=== PATIENT | female | born 1985 | race Caucasian/White ===

== ENCOUNTER 2017-02-12 09:57 | Inpatient (IN) | payer OTHER ==
[~2017-02-12] VITALS: Ht 162.6 cm; Wt 97.7 kg
[~2017-02-12 09:57] MED LIST: OMEP-110 PO
[2017-02-12] MEDS ORDERED: LACTATED RINGERS 1,000 ML IV SCH (12:52)
[2017-02-12] MEDS: D5%-LACTATED RINGERS 1,000 ML IV SCH ×2 (12:55→19:33)
[2017-02-12] MEDS ORDERED: PLEASE ENTER HEIGHT AND WEIGHT MC SCH (13:30)
[2017-02-12 13:48] LABS: HEMATOCRIT 35.2 % (34.6-47.8); WHITE BLOOD COUNT 10.9 x10^3/uL (3.4-10)
[2017-02-12 15:00] VITALS: BP 133/67
[2017-02-12 20:05] VITALS: BP 121/68
[2017-02-12] MEDS ORDERED: DIPHENHYDRAMINE 25 MG CAPSULE PO PRN (21:00)
[2017-02-12] MEDS ORDERED: DIPHENHYDRAMINE 25 MG CAPSULE ONE (22:09)
[2017-02-13] MEDS ORDERED: LACTATED RINGERS 1,000 ML IV SCH (08:26)
[2017-02-13] MEDS ORDERED: LACTATED RINGERS 1,000 ML IVBOLUS ONE (08:30)
[2017-02-13] MEDS ORDERED: METOCLOPRAMIDE 5 MG/ML, 2ML IV ONE (08:30)
[2017-02-13] MEDS ORDERED: SODIUM CITRATE/CITRIC ACID 30 ML UDC PO ONE (08:30)
[2017-02-13] MEDS ORDERED: SODIUM CITRATE/CITRIC ACID 30 ML UDC ONE (08:34)
[2017-02-13] MEDS ORDERED: METOCLOPRAMIDE 5 MG/ML, 2ML ONE ×2 (08:34→09:14)
[2017-02-13 08:40] VITALS: BP 138/69
[2017-02-13] MEDS ORDERED: CEFAZOLIN 1,000 MG ONE (09:14)
[2017-02-13] MEDS ORDERED: EPHEDRINE 50 MG/ML, 1ML ONE (09:14)
[2017-02-13] MEDS ORDERED: FENTANYL PF 100 MCG/2ML ONE (09:33)
[2017-02-13] MEDS ORDERED: OXYcodone/APAP 5/325MG TABLET PO PRN (11:00)
[2017-02-13] MEDS: AZITHROMYCIN 500 MG TABLET PO SCH (11:28)
[2017-02-13] MEDS ORDERED: INDOMETHACIN 50 MG CAPSULE PO SCH (12:30)
[2017-02-13] MEDS: INDOMETHACIN 50 MG CAPSULE PO SCH ×3 (12:35→19:36)
[2017-02-13] MEDS: SODIUM CHLORIDE FLUSH 3ML SYRINGE IVF SCH (20:33)
[2017-02-13 20:40] VITALS: BP 127/73
[2017-02-14] MEDS: INDOMETHACIN 50 MG CAPSULE PO SCH ×3 (05:59→22:22)
[2017-02-14 08:05] VITALS: BP 121/66
[2017-02-14] MEDS: SODIUM CHLORIDE FLUSH 3ML SYRINGE IVF SCH ×2 (09:25→22:22)
[2017-02-14] MEDS: AZITHROMYCIN 500 MG TABLET PO SCH (09:25)
[2017-02-14 14:00] VITALS: BP 116/65
[2017-02-15] MEDS: INDOMETHACIN 50 MG CAPSULE PO SCH ×2 (06:42→14:00)
[2017-02-15 08:45] VITALS: BP 124/68
[2017-02-15] MEDS: DOCUSATE 100 MG CAPSULE PO SCH ×2 (11:00→21:20)
[2017-02-15] MEDS ORDERED: DOCUSATE 100 MG CAPSULE ONE ×2 (11:02→21:19)
[2017-02-15] MEDS: AZITHROMYCIN 500 MG TABLET PO SCH (11:04)
[2017-02-16] MEDS ORDERED: DOCUSATE 100 MG CAPSULE ONE (08:44)
[2017-02-16] MEDS: AZITHROMYCIN 500 MG TABLET PO SCH (08:45)
[2017-02-16] MEDS: DOCUSATE 100 MG CAPSULE PO SCH (08:45)
[2017-02-16 08:48] VITALS: BP 130/75
== END 2017-02-16 11:00 | disposition home or self-care (01) | DRG 782 ==
LOC: LDOP 09:57 → LDIP 10:09 → OBSVTOIN 16:29
PROVIDERS: ADMIT Obstetrics & Gynecology Gynecology; ATTEND Obstetrics & Gynecology Gynecology
PROC: 0UVC7ZZ Restriction of Cervix, Via Natural or Artificial Opening (ICD-10-PCS; principal; 2017-02-13)
DX: O34.32 Maternal care for cervical incompetence, second trimester (principal); E66.9 Obesity, unspecified; D25.9 Leiomyoma of uterus, unspecified; K21.9 Gastro-esophageal reflux disease without esophagitis; O34.12 Maternal care for benign tumor of corpus uteri, second trimester; Z3A.23 23 weeks gestation of pregnancy; Z68.37 Body mass index [BMI] 37.0-37.9, adult
CPT/HCPCS: 36415; 76817; 82106; 82945; 85025; 87070; 87205; G0378; J0690; J3010; J2765; J7120; J7121; Q0163

== ENCOUNTER 2017-03-23 11:29 | Inpatient (IN) | payer OTHER ==
[~2017-03-23] VITALS: Ht 162.6 cm; Wt 81.8 kg
[2017-03-23 11:44] VITALS: BP 135/79
[2017-03-23] MEDS ORDERED: D5%-LACTATED RINGERS 1,000 ML IV ONE (12:30)
[2017-03-23] MEDS ORDERED: BETAMETHASONE 6 MG/ML, 5ML IM ONE (14:01)
[2017-03-23] MEDS: BETAMETHASONE 6 MG/ML, 5ML IM SCH (14:08)
[2017-03-23] MEDS: SODIUM CHLORIDE FLUSH 3ML SYRINGE IVF SCH ×2 (14:53→21:00)
[2017-03-23] MEDS ORDERED: [UNRECOGNIZED DRUG - OTHER] (15:17)
[2017-03-23] MEDS ORDERED: PREN1TAB60 PO (15:17)
[2017-03-23] MEDS ORDERED: progesterone supp VG (15:20)
[2017-03-23] MEDS ORDERED: ACETAMINOPHEN 325 MG TABLET ONE (22:56)
[2017-03-23] MEDS ORDERED: ACETAMINOPHEN 325 MG TABLET PO ONE (23:00)
[2017-03-24] MEDS ORDERED: NITROFURANTOIN (MACROBID) 100 MG CAPSULE ONE (07:47)
[2017-03-24] MEDS ORDERED: NITROFURANTOIN (MACROBID) 100 MG CAPSULE PO SCH (09:00)
[2017-03-24] MEDS: BETAMETHASONE 6 MG/ML, 5ML IM SCH (13:51)
== END 2017-03-24 13:55 | disposition home or self-care (01) | DRG 778 ==
LOC: LDOP 11:29 → LDIP 12:19 → OBSVTOIN 03-24 06:59
PROVIDERS: ADMIT Obstetrics & Gynecology Gynecology; ATTEND Obstetrics & Gynecology Gynecology
DX: O60.02 Preterm labor without delivery, second trimester (principal); O34.32 Maternal care for cervical incompetence, second trimester; O23.42 Unspecified infection of urinary tract in pregnancy, second trimester; Z3A.26 26 weeks gestation of pregnancy
CPT/HCPCS: 76819; 81001; 87086; G0378; J0702; J7121